=== PATIENT | male | born 1980 | race Two or more races ===

== ENCOUNTER 2018-07-26 07:25 | Emergency (ER) | payer SELFPAY ==
[2018-07-26 07:35] VITALS: BP 141/87
[2018-07-26] MEDS ORDERED: LIDOCAINE 1% INJ-PF (10 MG/ML) 30 ML SDV INJ ONE (08:54)
[2018-07-26] MEDS ORDERED: ACETAMINOPHEN 325 MG TABLET PO ONE (08:57)
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
== END 2018-07-26 11:07 | disposition home or self-care (01) ==
LOC: ER 07:25
DX: S01.111A Laceration without foreign body of right eyelid and periocular area, initial encounter (principal); S01.81XA Laceration without foreign body of other part of head, initial encounter; S01.511A Laceration without foreign body of lip, initial encounter; Y04.2XXA Assault by strike against or bumped into by another person, initial encounter
CPT/HCPCS: 99284; 70486; 12013; J3490